=== PATIENT | female | born 1985 | race Caucasian/White ===

== ENCOUNTER 2020-04-03 15:37 | Observation (INO) | payer MEDICAID, OTHER ==
[2020-04-03] MEDS ORDERED: PNV11TAB PO (21:57)
[2020-04-09] MEDS ORDERED: CALCIUM (03:53)
[2020-04-09] MEDS ORDERED: PREN1TAB78 PO (03:53)
[2020-04-09] MEDS ORDERED: FERR325T6 PO (03:53)
== END 2020-04-03 22:05 | disposition home or self-care (01) ==
LOC: L&D 15:37 → 8 EST LDRP 16:30
PROVIDERS: ADMIT Obstetrics & Gynecology; ATTEND Obstetrics & Gynecology
DX: O26.853 Spotting complicating pregnancy, third trimester (principal); Z3A.37 37 weeks gestation of pregnancy
CPT/HCPCS: 59025; 76815; 76818; G0378; 99281